=== PATIENT | male | born 1990 | race African-American/Black ===

== ENCOUNTER 2017-08-25 17:05 | Emergency (ER) | payer OTHER ==
--- NOTE | 2017-08-25 17:51 | ED Physician Documentation ---
History of Present Illness - Stated complaint Stated Complaint: MALE PX - Chief complaint Chief Complaint: General - History obtained from History obtained from: Patient - History of Present Illness Timing: Other (1 week urinary discomfort with mild drainage. Poss STD. Seen by SONU but UA neg per him.) Review of Systems Constitutional: reports: Reviewed and negative Nose: reports: Reviewed and negative Cardiac: reports: Reviewed and negative Respiratory: reports: Reviewed and negative PD PAST MEDICAL HISTORY - Past Medical History Past Medical History: No - Past Surgical History Past Surgical History: Yes HEENT: Tonsil/Adenoidectomy - Present Medications Home Medications: Ambulatory Orders Medication Instructions Recorded Confirmed Mupirocin 1 gm TOP BID #2 tub 08/25/17 - Allergies Allergies/Adverse Reactions: Allergies Allergy/AdvReac Type Severity Reaction Status Date / Time No Known Drug Allergies Allergy Verified 08/25/17 17:14 - Social History Does the pt smoke?: No Smoking Status: Never smoker - Immunizations Immunizations are current?: Yes PD ED PE NORMAL - Vitals Vital signs reviewed: Yes - General General: Alert and oriented X 3, No acute distress - Abdomen Abdomen: Soft, Non tender - Back Back: No CVA TTP, No spinal TTP - Neuro Neuro: Alert and oriented X 3, Normal speech - Psych Psych: Normal mood, Normal affect Results - Vitals Vitals: Vital Signs - 24 hr 08/25/17 17:13 Temperature 36.8 C Heart Rate 53 L Respiratory 18 Rate Blood Pressure 156/96 H O2 Saturation 98 Oxygen O2 Source Room air - Labs Labs: Laboratory Tests 08/25/17 17:48 Urine Color YELLOW Urine Clarity CLEAR Urine pH 6.5 Ur Specific [place] 1.020 Urine Protein NEGATIVE Urine Glucose (UA) NEGATIVE Urine Ketones NEGATIVE Urine Occult Blood NEGATIVE Urine Nitrite NEGATIVE Urine Bilirubin NEGATIVE Urine Urobilinogen 0.2 (NORMAL) Ur Leukocyte Esterase NEGATIVE Ur Microscopic Review NOT INDICATED Urine Culture Comments NOT INDICATED PD MEDICAL DECISION MAKING - ED course ED course: 2 negative urinalyses, presumed urethritis, test sent for same but will treat presumptively. He also notes a nonhealing pimple type lesion on his face which I will give him mupirocin for. It was very minor on examination. Departure - Departure Disposition: 01 Home, Self Care Clinical Impression: Urethritis Condition: Good Record reviewed to determine appropriate education?: Yes Instructions: ED Urethritis Infec Vs Inflam Male Prescriptions: Mupirocin 1 gm TOP BID #2 tub Comments: [place]. Your blood pressure was elevated today on check into the emergency department. This does not mean that you have hypertension, it is a common phenomenon to come to the emergency department and have elevated blood pressure. I recommend that you see your primary care physician within the week to have it rechecked when you are feeling better.
[2017-08-25 18:15] LABS: BILIRUBIN,URINE NEGATIVE (NEGATIVE); PH,URINE 6.5 PH (5.0-7.5)
[2017-08-25 18:16] LABS: UA CHARGE (STRIP ONLY) YES; UR CULTURE IF IND NOT INDICATED
[2017-08-25] MEDS ORDERED: AZITHROMYCIN 250 MG TABLET PO STA (18:20)
[2017-08-25] MEDS ORDERED: cefTRIAXone 250 MG VIAL IM STA (18:20)
[2017-08-25] MEDS ORDERED: AZITHROMYCIN 250 MG TABLET PO ONE (18:33)
[2017-08-25] MEDS ORDERED: cefTRIAXone 250 MG VIAL ONE (18:34)
[2017-08-25] MEDS ORDERED: LIDOCAINE 1% 2 ML VIAL ONE (18:34)
[2017-08-25 18:56] VITALS: BP 136/91
== END 2017-08-25 18:55 | disposition home or self-care (01) ==
LOC: ED 17:05
DX: N34.2 Other urethritis (principal); R03.0 Elevated blood-pressure reading, without diagnosis of hypertension; L98.9 Disorder of the skin and subcutaneous tissue, unspecified
CPT/HCPCS: 81003; 87491; 87591; 96372; 99283; A9270; 81001; 87086